=== PATIENT | male | born 1980 | race Caucasian/White ===

== ENCOUNTER 2018-08-08 12:33 | Emergency (ER) | payer MEDICAID ==
[~2018-08-08] VITALS: Ht 170.2 cm; Wt 75.0 kg
[2018-08-08 12:39] VITALS: Ht 170.2 cm; Wt 75.0 kg
[2018-08-08] MEDS ORDERED: KETOROLAC 30 MG INJ IM STA (13:37)
--- NOTE | 2018-08-08 13:40 | ERD ---
ER Documentation Chief Complaint Chief Complaint fever, cough, sorethroat x2 day HPI 37-year-old male, previously healthy, presents to the emergency department, complaining of 2 days with acute onset of high fever, T-max 104, associated with dry cough, generalized arthralgia, sore throat and malaise. The patient has been taking [id number] medication with mild improvement of the symptoms. He denies shortness of breath, no chills, no rashes, no GI symptoms. No flu vaccine this season. ROS All systems reviewed and are negative except as per history of present illness. Medications Home Meds Active Scripts Acetaminophen* (Tylenol*) 325 Mg Tablet, 2 TAB PO Q8 PRN for PAIN AND OR ELEVATED TEMP, #20 TAB Prov:CHARLY KYLE MD 08/08/18 Ibuprofen* (Motrin*) 600 Mg Tab, 600 MG PO Q8, #15 TAB Prov:CHARLY KYLE MD 08/08/18 Oseltamivir Phosphate* (Tamiflu*) 75 Mg Capsule, 75 MG PO BID for 5 Days, CAP Prov:CHARLY KYLE MD 08/08/18 Allergies Allergies: Coded Allergies: No Known Allergy (Unverified , 08/08/18) FmHx Family History: No diabetes, No coronary disease Physical Exam Vitals Vital Signs Date Temp Pulse Resp B/P (MAP) Pulse Ox O2 O2 Flow FiO2 Time Delivery Rate 08/08/18 101.2 76 18 106/58 99 Room Air 14:49 (74) 08/08/18 102.7 104 18 113/60 97 12:39 (77) Physical Exam Patient is in moderate distress due to cough and fever, vital signs showed fever. EYES: PERRLA, EOMI, injected sclerae EARS: Canals clear, erythematous tympanic membranes THROAT: Erythematous oropharynx. NECK: Supple, No lymphadenopathy. Full ROM without pain or tenderness. HEART: RRR, no rubs, murmurs, clicks or gallops. LUNGS: Bilateral rhonchi to auscultation. ABDOMEN: Soft, non-tender without masses or hepatosplenomegaly. EXTREMITIES: No edema bilaterally. BACK: Full ROM, no deformity, normal back exam NEURO: Cranial nerves grossly intact, no motor or sensory deficit Results 24 hrs Current Medications Medications Dose Sig/Rick Start Time Status Last (Trade) Ordered Route PRN Stop Time Admin Dose Reason Admin Ketorolac 30 mg ONCE STAT 08/08/18 DC 08/08/18 Tromethamine IM 13:37 13:59 (Toradol) 08/08/18 13:42 2 tab ONCE ONCE 08/08/18 DC 08/08/18 Acetaminophen PO 14:00 13:58 / 08/08/18 14:01 Hydrocodone Bitart ([place] (5/325)) Oseltamivir 75 mg ONCE ONCE 08/08/18 DC 08/08/18 Phosphate PO 14:00 13:59 (Tamiflu) 08/08/18 14:01 Ondansetron 8 mg ONCE STAT 08/08/18 DC 08/08/18 HCl (Zofran ODT 14:39 14:43 Odt) 08/08/18 14:40 Procedures/MDM At the time of discharge, vital signs stable, no respiratory distress. Differential diagnosis include but not limited to: Respiratory infection bacterial/viral/fungal. Asthma/COPD, pneumonitis, allergies, GERD. Less likely foreign body aspiration, cardiac related, aspiration pneumonia, malignancy. Physical examination and clinical presentation consistent most likely with influenza. During the ED course the patient remained stable, fever resolved with medications given in the ER, no new complaints. Clinical impression discussed with patient who agrees with management. The patient is stable to be treated outpatient and will be discharged home with a Rx for antiviral medication and ibuprofen, antibiotics not indicated at this time. Some side effects of prescribed medications (headache, rash, nausea, vomiting, diarrhea, drowsiness, habituation, bleeding, hypertension, interactions with other medications) were reviewed. The patient was instructed to follow up with the primary care provider in the next 48h. If symptoms persist, worsen or new symptoms develop, then patient should return to the ED immediately. Disclaimer: Inadvertent spelling and grammatical errors are likely due to EHR/dictation software use and do not reflect on the overall quality of patient care. Also, please note that the electronic time recorded on this note does not necessarily reflect the actual time of the patient encounter. Departure Diagnosis: Primary Impression: Influenza-like symptoms Condition: Stable Additional Instructions: Muchas timur por [facility] para gagnon servicio. Esperamos que en gagnon visita a la randy de emergencia gagnon problema medico haya sido solucionado y que se sienta mucho mejor. Para estar seguros que gagnon mejoria sigue en proceso, le pedimos el favor de hacer my manny de seguimiento medico con gagnon doctor primario en los proximos 2-4 floyd. Lleve con usted estos documentos y las medicinas recetadas. Si sandhya sintomas empeoran, NO SE ESPERE, por favor regrese a randy de emergencia INMEDIATAMENTE. En noé que usted no tenga un mdico de atencin primaria: Llame al mdico o clnica comunitaria de referencia que aparece abajo david las horas de consultorio para hacer my manny para que le vean. CLINICAS: [facility] [phone] [phone] [facility] [phone] [facility] [phone] [facility] [phone] [id number] [facility]. [phone] CHARLY MYERS MD Aug 08, 2018 13:40
[2018-08-08] MEDS ORDERED: OSEL75CA23 PO (13:45)
[2018-08-08] MEDS ORDERED: ACET325T33 PO (13:45)
[2018-08-08] MEDS ORDERED: IBUP-1542 PO (13:45)
[2018-08-08] MEDS ORDERED: OSELTAMIVIR 75 MG CAP PO ONE (14:00)
[2018-08-08] MEDS ORDERED: HYDROCODONE/APAP (5/325) TAB PO ONE (14:00)
[2018-08-08] MEDS ORDERED: ONDANSETRON (ODT) 4 MG TAB ODT STA (14:39)
[2018-08-08 14:49] VITALS: BP 106/58; PULSE 76; RESP 18
== END 2018-08-08 14:50 | disposition home or self-care (01) ==
LOC: FTE 12:33
DX: J02.9 Acute pharyngitis, unspecified (principal); M25.50 Pain in unspecified joint; R53.81 Other malaise
CPT/HCPCS: 96372; J1885; Z7502; Z7610